=== PATIENT | female | born 1970 | race Two or more races ===

== ENCOUNTER 2017-05-12 13:52 | Emergency (ER) | payer OTHER ==
[2017-05-12 15:21] LABS: CALCIUM 9.2 mg/dL (8.5-10.1); CARBON DIOXIDE 29.6 mmol/L (21-32); CHLORIDE SERUM 104 mmol/L (98-107); CREATININE SERUM 0.7 mg/dL (0.6-1.0); GFR1 > 60 mL/min; GLUCOSE SERUM 93 mg/dL (74-106); POTASSIUM SERUM 3.8 mmol/L (3.5-5.1); SODIUM SERUM 140 mmol/L (136-145)
[2017-05-12 15:29] LABS: ALBUMIN 3.7 g/dL (3.4-5.0); ALKALINE PHOSPHATASE 85 U/L (46-116); ALT/SGPT 27 U/L (14-59); AST/SGOT 27 U/L (15-37); BILIRUBIN TOTAL 0.4 mg/dL (0.20-1.00); TOTAL PROTEIN, SERUM 7.5 g/dL (6.4-8.2); URIC ACID 3.7 mg/dL (2.6-6.0)
[2017-05-12 15:31] LABS: BASOPHIL % 0.6 % (0-2); PLATELET COUNT 155 x10^3mcL (130-400); RED CELL DISTRIBUTION WIDTH 14.3 % (11.5-14.5)
[2017-05-12 17:09] VITALS: BP 150/77
[2017-05-12 18:43] LABS: ERYTHROCYTE SED RATE 26 mm/hr (0-20)
== END 2017-05-12 17:10 | disposition home or self-care (01) ==
LOC: ED 13:52
PROVIDERS: Emergency Medicine
DX: M54.5 Low back pain (principal); M25.561 Pain in right knee; M25.562 Pain in left knee; F17.200 Nicotine dependence, unspecified, uncomplicated; Z71.6 Tobacco abuse counseling; Z88.8 Allergy status to other drugs, medicaments and biological substances
CPT/HCPCS: 36415; 99406; J7512

== ENCOUNTER 2020-07-26 14:20 | Emergency (ER) | payer OTHER, SELFPAY ==
[~2020-07-26] VITALS: Ht 162.6 cm; Wt 68.0 kg
[2020-07-26 14:27] VITALS: Ht 162.6 cm; Wt 68.0 kg
[2020-07-26 16:04] LABS: CALCIUM 8.8 mg/dL (8.5-10.1); CARBON DIOXIDE 30.3 mmol/L (21-32); CHLORIDE SERUM 103 mmol/L (98-107); CREATININE SERUM 0.8 mg/dL (0.6-1.0); GFR1 > 60 mL/min; GLUCOSE SERUM 88 mg/dL (74-106); POTASSIUM SERUM 3.5 mmol/L (3.5-5.1); SODIUM SERUM 137 mmol/L (136-145)
[2020-07-26 16:07] LABS: BASOPHIL % 0.2 % (0-2); PLATELET COUNT 147 x10^3mcL (130-400); RED CELL DISTRIBUTION WIDTH 14.6 % (11.5-14.5)
[2020-07-26 16:08] LABS: ALKALINE PHOSPHATASE 160 U/L (46-116); ALT/SGPT 106 U/L (14-59); AST/SGOT 120 U/L (15-37); BILIRUBIN TOTAL 0.4 mg/dL (0.20-1.00); LIPASE 81 IU/L (73-393); TOTAL PROTEIN, SERUM 7.7 g/dL (6.4-8.2)
[2020-07-26 16:09] LABS: ALBUMIN 3.1 g/dL (3.4-5.0)
[2020-07-26 17:37] VITALS: BP 102/56
== END 2020-07-26 17:37 | disposition home or self-care (01) ==
LOC: ED 14:20
PROVIDERS: Student in an Organized Health Care Education/Training Program
DX: U07.1 COVID-19 (principal); R11.2 Nausea with vomiting, unspecified; Z88.6 Allergy status to analgesic agent
CPT/HCPCS: J2405; J7030